=== PATIENT | female | born 1935 | race Caucasian/White ===

== ENCOUNTER 2016-12-22 11:24 | Outpatient (CLI) | payer MEDICARE, OTHER | END 2016-12-22 11:25 | LOC: RT 11:24 | PROVIDERS: ATTEND Family Medicine | DX: R00.1 Bradycardia, unspecified (principal) ==

== ENCOUNTER 2017-03-09 13:08 | Outpatient (CLI) | payer MEDICARE, OTHER | END 2017-03-09 13:10 | LOC: POD 13:08 | PROVIDERS: ATTEND Podiatrist | DX: B35.1 Tinea unguium (principal); M79.674 Pain in right toe(s); M79.675 Pain in left toe(s) | CPT/HCPCS: 11721; G0463 ==

== ENCOUNTER 2017-06-11 12:57 | Outpatient (CLI) | payer MEDICARE, OTHER | END 2017-06-11 13:00 | LOC: POD 12:57 | PROVIDERS: ATTEND Podiatrist | DX: B35.1 Tinea unguium (principal); M79.674 Pain in right toe(s); M79.675 Pain in left toe(s) | CPT/HCPCS: 11721; G0463 ==

== ENCOUNTER 2017-09-21 12:43 | Outpatient (CLI) | payer MEDICARE, OTHER | END 2017-09-21 12:44 | LOC: POD 12:43 | PROVIDERS: ATTEND Podiatrist | DX: B35.1 Tinea unguium (principal); M79.674 Pain in right toe(s); M79.675 Pain in left toe(s) | CPT/HCPCS: 11721; G0463 ==

== ENCOUNTER 2017-12-24 12:35 | Outpatient (CLI) | payer MEDICARE, OTHER | END 2017-12-24 12:36 | LOC: POD 12:35 | PROVIDERS: ATTEND Podiatrist | DX: B35.1 Tinea unguium (principal); M79.674 Pain in right toe(s); M79.675 Pain in left toe(s) | CPT/HCPCS: 11721; G0463 ==

== ENCOUNTER 2018-01-31 15:09 | Outpatient (CLI) | payer MEDICARE, OTHER ==
[2018-01-31 15:28] LABS: BASOPHILS % 0.6 (0.0-1.5); EOSINOPHILS % 9.5 % (0.0-6.8); MEAN CORPUSCULAR HEMOGLOBIN 28.8 pg (28.0-34.0); MEAN CORPUSCULAR VOLUME 91.1 fl (80.0-100.0); MONOCYTES % 5.3 % (0.0-11.0); NEUTROPHILS # 3.5 # k/uL (1.4-7.7)
[2018-01-31 16:03] LABS: eGFR (African) 32; eGFR (Non-African) 27
== END 2018-01-31 15:10 ==
LOC: LAB 15:09
PROVIDERS: ATTEND Family Medicine
DX: M10.371 Gout due to renal impairment, right ankle and foot (principal); I10 Essential (primary) hypertension
CPT/HCPCS: 36415; 80053; 84550; 85025

== ENCOUNTER 2018-03-25 12:42 | Outpatient (CLI) | payer MEDICARE, OTHER | END 2018-03-25 13:45 | LOC: POD 12:42 | PROVIDERS: ATTEND Podiatrist | DX: B35.1 Tinea unguium (principal); M79.674 Pain in right toe(s); M79.675 Pain in left toe(s) | CPT/HCPCS: 11721; G0463 ==

== ENCOUNTER 2018-04-05 11:19 | Outpatient (CLI) | payer MEDICARE, OTHER ==
[2018-04-05 13:36] LABS: eGFR (African) 27; eGFR (Non-African) 23
== END 2018-04-05 11:23 ==
LOC: CARD 11:19
PROVIDERS: ATTEND Internal Medicine Cardiovascular Disease
DX: I13.0 Hypertensive heart and chronic kidney disease with heart failure and stage 1 through stage 4 chronic kidney disease, or unspecified chronic kidney disease (principal); G45.8 Other transient cerebral ischemic attacks and related syndromes; I25.10 Atherosclerotic heart disease of native coronary artery without angina pectoris; E78.5 Hyperlipidemia, unspecified; I50.9 Heart failure, unspecified
CPT/HCPCS: 36415; 80048; 84443; G0463

== ENCOUNTER 2019-06-19 10:36 | Outpatient (CLI) | payer MEDICARE, OTHER ==
[2019-06-19 11:15] LABS: BASOPHILS % 0.3 % (0.0-1.5); NEUTROPHILS # 4.3 # k/uL (1.4-7.7)
[2019-06-19 11:16] LABS: eGFR (Non-African) 14
[2019-06-19 11:17] LABS: HYPOCHROMASIA 1+ (NEGATIVE); OVALOCYTES 1+ (NEGATIVE); SEGMENTED NEUTROPHILS % 67 % (39-79)
== END 2019-06-19 10:38 ==
LOC: LAB 10:36
PROVIDERS: ATTEND Family Medicine
DX: R42 Dizziness and giddiness (principal)
CPT/HCPCS: 36415; 80053; 85025

== ENCOUNTER 2019-07-18 14:27 | Outpatient (CLI) | payer MEDICARE, OTHER | END 2019-07-18 14:57 | LOC: NEPHRO 14:27 | PROVIDERS: ATTEND Internal Medicine Nephrology | DX: I12.9 Hypertensive chronic kidney disease with stage 1 through stage 4 chronic kidney disease, or unspecified chronic kidney disease (principal); N18.3 Chronic kidney disease, stage 3 (moderate); Z96.652 Presence of left artificial knee joint | CPT/HCPCS: 99202; G0463 ==

== ENCOUNTER 2019-07-24 09:05 | Outpatient (CLI) | payer MEDICARE, OTHER ==
[2019-07-24 09:27] LABS: BASOPHILS % 0.3 % (0.0-1.5); NEUTROPHILS # 2.5 # k/uL (1.4-7.7)
[2019-07-24 09:28] LABS: APPEARANCE,URINE CLEAR (CLEAR); COLOR,URINE YELLOW (YELLOW); OCCULT BLOOD,URINE NEGATIVE (NEGATIVE); UROBILINOGEN URINE 0.2 Eu (0.2-1.0)
[2019-07-24 10:01] LABS: eGFR (Non-African) 38
== END 2019-07-24 09:10 ==
LOC: LAB 09:05
PROVIDERS: ATTEND Internal Medicine Nephrology
DX: N17.9 Acute kidney failure, unspecified (principal); I12.9 Hypertensive chronic kidney disease with stage 1 through stage 4 chronic kidney disease, or unspecified chronic kidney disease; N18.3 Chronic kidney disease, stage 3 (moderate)
CPT/HCPCS: 36415; 80053; 81002; 84100; 85025

== ENCOUNTER 2019-07-25 13:47 | Outpatient (CLI) | payer MEDICARE, OTHER | END 2019-07-25 14:20 | LOC: NEPHRO 13:47 | PROVIDERS: ATTEND Internal Medicine Nephrology | DX: I12.9 Hypertensive chronic kidney disease with stage 1 through stage 4 chronic kidney disease, or unspecified chronic kidney disease (principal); N18.3 Chronic kidney disease, stage 3 (moderate) | CPT/HCPCS: 99213; G0463 ==

== ENCOUNTER 2019-08-07 09:10 | Outpatient (CLI) | payer MEDICARE, OTHER ==
[2019-08-07 09:34] LABS: APPEARANCE,URINE CLEAR (CLEAR); BASOPHILS % 0.3 % (0.0-1.5); COLOR,URINE YELLOW (YELLOW); NEUTROPHILS # 5.3 # k/uL (1.4-7.7); OCCULT BLOOD,URINE NEGATIVE (NEGATIVE); PH URINE 5.5 (5.0 - 8.0); UROBILINOGEN URINE 0.2 Eu (0.2-1.0)
[2019-08-07 10:10] LABS: eGFR (Non-African) 37
== END 2019-08-07 09:15 ==
LOC: LAB 09:10
PROVIDERS: ATTEND Internal Medicine Nephrology
DX: I12.9 Hypertensive chronic kidney disease with stage 1 through stage 4 chronic kidney disease, or unspecified chronic kidney disease (principal); N18.3 Chronic kidney disease, stage 3 (moderate); E83.52 Hypercalcemia
CPT/HCPCS: 36415; 80053; 81002; 82340; 84100; 84300; 85025

== ENCOUNTER 2019-08-08 15:14 | Outpatient (CLI) | payer MEDICARE, OTHER | END 2019-08-08 15:46 | LOC: NEPHRO 15:14 | PROVIDERS: ATTEND Internal Medicine Nephrology | DX: I12.9 Hypertensive chronic kidney disease with stage 1 through stage 4 chronic kidney disease, or unspecified chronic kidney disease (principal); N18.3 Chronic kidney disease, stage 3 (moderate) | CPT/HCPCS: 99213; G0463 ==

== ENCOUNTER 2019-09-01 13:50 | Outpatient (CLI) | payer MEDICARE, OTHER ==
[2019-09-01 14:43] LABS: BASOPHILS % 0.3 % (0.0-1.5); NEUTROPHILS # 2.9 # k/uL (1.4-7.7)
[2019-09-01 14:45] LABS: eGFR (Non-African) 41
[2019-09-01 14:51] LABS: COLOR,URINE YELLOW (YELLOW)
[2019-09-01 14:52] LABS: APPEARANCE,URINE CLEAR (CLEAR); OCCULT BLOOD,URINE NEGATIVE (NEGATIVE); UROBILINOGEN URINE 0.2 Eu (0.2-1.0)
== END 2019-09-01 13:55 ==
LOC: LAB 13:50
PROVIDERS: ATTEND Internal Medicine Nephrology
DX: I12.9 Hypertensive chronic kidney disease with stage 1 through stage 4 chronic kidney disease, or unspecified chronic kidney disease (principal); N18.9 Chronic kidney disease, unspecified
CPT/HCPCS: 36415; 80053; 81002; 83970; 85025; 87086

== ENCOUNTER 2019-09-05 14:14 | Outpatient (CLI) | payer MEDICARE, OTHER | END 2019-09-05 14:44 | LOC: NEPHRO 14:14 | PROVIDERS: ATTEND Internal Medicine Nephrology | DX: I12.9 Hypertensive chronic kidney disease with stage 1 through stage 4 chronic kidney disease, or unspecified chronic kidney disease (principal); N18.3 Chronic kidney disease, stage 3 (moderate) | CPT/HCPCS: G0463 ==